=== PATIENT | male | born 1985 | race African-American/Black ===

== ENCOUNTER 2017-09-05 11:06 | Observation (INO) | payer SELFPAY ==
[~2017-09-05] VITALS: Ht 177.8 cm; Wt 73.0 kg
[2017-09-05 11:37] LABS: HEMATOCRIT 44.7 % (38.0-50.0); HEMOGLOBIN 15.1 G/DL (12.5-16.6); MCH 27.6 PG (29.0-34.0); MCHC 33.8 G/DL (30.0-36.0); MCV 81.7 FL (86-99); PLATELET COUNT 237 K/uL (156-360); RBC DIS.WIDTH-CV 12.6 % (11.8-14.6); RBC DIS.WIDTH-SD 37.2 % (39-53); RED BLOOD COUNT 5.47 M/uL (4.00-5.50); WHITE BLOOD COUNT 9.1 K/uL (4.1-10.2)
[2017-09-05 11:46] LABS: ALBUMIN 4.6 g/dL (3.2-4.8); CHLORIDE 105 mEq/L (99-109); POTASSIUM 4.1 mEq/L (3.7-5.4); SODIUM 142 mEq/L (136-147)
[2017-09-05 11:48] LABS: GLUCOSE 94 mg/dL (70-99); TOTAL PROTEIN 8.4 g/dL (6.4-8.3)
[2017-09-05 11:50] LABS: TOTAL BILIRUBIN 0.9 mg/dL (0.0-1.0)
[2017-09-05 11:52] LABS: ALKALINE PHOSPHATASE 71 IU/L (3-129); CREATININE 1.2 mg/dL (0.6-1.3); GFR ESTIMATE (CALCULATED) > 59 mL/min/ (58.99-99999)
[2017-09-05 11:53] LABS: AST (GOT) 21 IU/L (2-34); UREA NITROGEN (BUN) 15 mg/dL (9-23)
[2017-09-05 11:56] LABS: ALT (GPT) 13 IU/L (3-49)
[2017-09-05 12:09] LABS: LIPASE 19 U/L (1.0-51.0)
[2017-09-05 12:29] LABS: TROP-I INTERPRETATION NEGATIVE; TROPONIN-I < 0.01 ng/mL (0.0-0.30)
[2017-09-05 13:19] LABS: APPEARANCE CLEAR ((CLEAR)); BILIRUBIN NEGATIVE; BLOOD SMALL; COLOR AMBER ((YELLOW)); GLUCOSE (STRIP) NEGATIVE; KETONES 80; LEUKOCYTES NEGATIVE; NITRITE NEGATIVE; PROTEIN (STRIP) 30; SPECIFIC GRAVITY 1.048 (1.000-1.030)
[2017-09-05 13:25] LABS: BACTERIA NONE SEEN /HPF; EPITHELIAL CELLS RARE /HPF; MUCUS 2+ /LPF; UCUL ADDED? NO; WHITE BLOOD CELLS 0-5 /HPF (0-5)
[2017-09-05] MEDS ORDERED: TYLENOL REGULA325 MG PO (15:09)
[2017-09-05] MEDS ORDERED: CLARITIN,ALAVAR10 MG PO (15:09)
[2017-09-05] MEDS ORDERED: TEARS AGAIN15 ML BOTH EYES (15:10)
[2017-09-05 17:27] VITALS: BP 131/80
[2017-09-05 19:39] LABS: BENZODIAZEPINES, URINE SCREEN Negative (200 ng/mL)
[2017-09-05 23:41] VITALS: BP 122/57
[2017-09-06 03:08] VITALS: BP 123/60
[2017-09-06 05:48] LABS: BASOPHIL (%) 0.5 % (0-1); EOSINOPHIL (%) 10.6 % (0-5); EOSINOPHIL COUNT 0.7 K/uL (0-0.3); IMMATURE GRANULOCYTE (%) 0.5 % (0.0-0.7); LYMPHOCYTE (%) 27.2 % (15-42); LYMPHOCYTE COUNT 1.7 K/uL (1.0-2.8); MCH 26.8 PG (29.0-34.0); MCHC 32.2 G/DL (30.0-36.0); MCV 83.1 FL (86-99); MONOCYTE (%) 11.8 % (3-12); MONOCYTE COUNT 0.7 K/uL (0-0.8); NEUTROPHIL (%) 49.4 % (45-76); NEUTROPHIL COUNT 3.1 K/uL (1.8-6.4); PLATELET COUNT 187 K/uL (156-360); RBC DIS.WIDTH-CV 12.4 % (11.8-14.6); RBC DIS.WIDTH-SD 37.9 % (39-53); WHITE BLOOD COUNT 6.3 K/uL (4.1-10.2)
[2017-09-06 05:50] LABS: HEMOGLOBIN 11.6 G/DL (12.5-16.6); RED BLOOD COUNT 4.33 M/uL (4.00-5.50)
[2017-09-06 05:54] LABS: ALBUMIN 3.3 G/DL (3.2-4.8); ALKALINE PHOSPHATASE 50 IU/L (3-129); ALT (GPT) 7 IU/L (3-49); AST (GOT) 14 IU/L (2-34); CHLORIDE 105 MEQ/L (99-109); CREATININE 1.1 MG/DL (0.6-1.3); GFR ESTIMATE (CALCULATED) > 59 mL/min/ (58.99-99999); GLUCOSE 87 mg/dL (70-99); SODIUM 137 MEQ/L (136-147); TOTAL BILIRUBIN 0.7 MG/DL (0.0-1.0); TOTAL PROTEIN 6.1 G/DL (6.4-8.3); UREA NITROGEN (BUN) 12 mg/dL (9-23)
[2017-09-06 07:26] VITALS: BP 130/70
[2017-09-06] MEDS ORDERED: PROTONIX20 MG PO (09:01)
[2017-09-06 10:41] LABS: HEMATOCRIT 37.5 % (38.0-50.0); HEMOGLOBIN 12.2 G/DL (12.5-16.6); MCV 83.1 FL (86-99)
== END 2017-09-06 11:32 | disposition home or self-care (01) ==
LOC: EME 11:06 → EDOF 15:40 → ENRESERV 15:41 → 4SOUTH 17:20
PROVIDERS: Internal Medicine; Physician Assistant Medical
DX: R10.84 Generalized abdominal pain (principal); E86.0 Dehydration; R11.2 Nausea with vomiting, unspecified; R19.7 Diarrhea, unspecified; R50.9 Fever, unspecified
CPT/HCPCS: 71046; 74177; 80053; 80306 90; 81003; 83690; 84484; 85014; 85018; 85025; 85027; 87040; 87177; 87329; 87651 90; 93005; 94799; 99281; 99285; C9113; G0378; J0696; J1644; J2405; J3010; J7030; S0030; S0074